=== PATIENT | female | born 1955 | race Hispanic/Latino ===

== ENCOUNTER 2017-07-27 11:30 | Outpatient (CLI) | payer OTHER ==
--- NOTE | 2017-07-27 15:08 | XRay Report ---
XRAY LEFT KNEE 4 THREE VIEWS: 07/27/17 CLINICAL: Left knee pain. FINDINGS: Mild osteopenia. No fracture or dislocation. The medial and lateral joint spaces are normal. Small patellofemoral osteophytes. No joint effusion.Normal soft tissues. IMPRESSION: Osteopenia and mild patellofemoral joint osteoarthritis.
== END 2017-07-27 11:31 | disposition home or self-care (01) ==
LOC: SPVIMAG 11:30
PROVIDERS: ATTEND Orthopaedic Surgery
DX: M17.12 Unilateral primary osteoarthritis, left knee (principal); M85.862 Other specified disorders of bone density and structure, left lower leg